=== PATIENT | female | born 1955 | race Caucasian/White ===

== ENCOUNTER 2018-06-24 06:57 | Inpatient (IN) | payer OTHER ==
[2018-06-24] MEDS ORDERED: SEVOFLURANE 15 MIN (07:00)
[2018-06-24] MEDS ORDERED: PROPOFOL 200 MG INJ (07:00)
[2018-06-24] MEDS ORDERED: CEFAZOLIN 1 GM INJ (07:00)
[2018-06-24] MEDS ORDERED: EPHEDrine SULFATE 50 MG/5 ML SYG (07:00)
[2018-06-24] MEDS ORDERED: LIDOCAINE 2% (SDV) 5 ML INJ (07:52)
[2018-06-24] MEDS ORDERED: ETOMIDATE 20 MG INJ (07:52)
[2018-06-24] MEDS ORDERED: FENTAnyl 50 MCG/ML VIAL (07:52)
[2018-06-24] MEDS ORDERED: PHENYLephrine 10 MG INJ (07:53)
[2018-06-24] MEDS ORDERED: DEXAMETHASONE 4 MG/ML 5 ML INJ (07:53)
[2018-06-24] MEDS ORDERED: ONDANSETRON 4 MG INJ (08:05)
[2018-06-24] MEDS ORDERED: FENTAnyl 50 MCG/ML VIAL IV (08:30)
[2018-06-24] MEDS ORDERED: ROPIVACAINE 0.2% 20 ML VIAL (09:13)
[2018-06-24] MEDS ORDERED: HYDROmorphONE 2 MG/ML SYG (09:15)
[2018-06-24] MEDS: BUPIVACAINE 0.5%/EPI (SDV) 30 ML INJ (09:57)
[2018-06-24] MEDS: ONDANSETRON 4 MG INJ IV ×3 (11:03→17:06)
[2018-06-24 12:11] LABS: ADD MAN DIFF? NO
[2018-06-24 12:17] LABS: WHITE BLOOD COUNT 10.8 10^3/ul (4.8-10.8)
[2018-06-24 12:17] LABS: BASOPHIL # 0.1 10^3/ul (0.0-0.1); BASOPHILS % 0.5 % (0.0-2.0); EOSINOPHILS % 0.1 % (0.0-7.0); HEMATOCRIT 37.5 % (37.0-47.0); LYMPHOCYTES # 1.7 10^3/ul (0.8-2.9); LYMPHOCYTES % 15.8 % (15.0-51.0); MEAN CORPUSCULAR HEMOGLOBIN 25.9 pg (29.0-33.0); MONOCYTE # 0.2 10^3/ul (0.3-0.9); MONOCYTES % 1.8 % (0.0-11.0); NEUTROPHIL # 8.8 10^3/ul (1.6-7.5); NEUTROPHILS % 81.3 % (39.0-77.0); PLATELET COUNT 365 10^3/UL (140-415); RED BLOOD COUNT 4.63 10^6/ul (4.20-5.40); RED CELL DISTRIBUTION WIDTH 13.4 % (11.5-14.5)
[2018-06-24 12:20] LABS: ANION GAP 12 (5-13); BLOOD UREA NITROGEN 12 mg/dl (7-20); CALCIUM 9.1 mg/dl (8.4-10.2); CARBON DIOXIDE 20 mmol/L (21-31); CHLORIDE 107 mmol/L (97-110); CREATININE 0.58 mg/dl (0.44-1.00); Estimated GFR > 60 mL/min (>60); GLUCOSE 193 mg/dl (70-220); SODIUM 139 mmol/L (135-144)
[2018-06-24 12:30] LABS: LACTIC ACID 3.7 mmol/L (0.5-2.0)
[2018-06-24 12:32] LABS: TROPONIN-I < 0.012 ng/ml (0.000-0.120)
[2018-06-24] MEDS: POTASSIUM CHLORIDE (SR) 20 MEQ TAB PO (12:48)
[2018-06-24] MEDS: SOD CHLORIDE 0.9% 1,000 ML IV ×2 (15:05→23:50)
[2018-06-24] MEDS: CEFTRIAXONE 1 GM/50 ML (PMX) 50 ML IVPB (15:06)
[2018-06-24] MEDS: HYDROCHLOROTHIAZIDE 12.5 MG CAP PO (16:15)
[2018-06-24] MEDS: ENALAPRIL 20 MG TAB PO (16:29)
[2018-06-24] MEDS ORDERED: METOCLOPRAMIDE 10 MG INJ IV (17:00)
[2018-06-24] MEDS: PANTOPRAZOLE 40 MG INJ IV (17:35)
[2018-06-24] MEDS: hydrALAzine 20 MG INJ IV (17:48)
[2018-06-24 19:54] LABS: ADD MAN DIFF? NO
[2018-06-24 19:58] LABS: WHITE BLOOD COUNT 12.8 10^3/ul (4.8-10.8)
[2018-06-24 19:58] LABS: ABNORMAL IP MESSAGE 1; BASOPHILS % 0.2 % (0.0-2.0); HEMATOCRIT 37.2 % (37.0-47.0); HEMOGLOBIN 11.8 g/dl (12.0-16.0); LYMPHOCYTES # 0.5 10^3/ul (0.8-2.9); LYMPHOCYTES % 3.8 % (15.0-51.0); MEAN CORPUSCULAR HGB CONC 31.7 g/dl (32.0-37.0); MEAN CORPUSCULAR VOLUME 81.9 fl (82.0-101.0); MEAN PLATELET VOLUME 10.2 fl (7.4-10.4); MONOCYTE # 0.1 10^3/ul (0.3-0.9); MONOCYTES % 0.9 % (0.0-11.0); NEUTROPHIL # 12.1 10^3/ul (1.6-7.5); NEUTROPHILS % 94.5 % (39.0-77.0); PLATELET COUNT 344 10^3/UL (140-415); RED BLOOD COUNT 4.54 10^6/ul (4.20-5.40); RED CELL DISTRIBUTION WIDTH 13.2 % (11.5-14.5)
[2018-06-24 20:00] LABS: POSITIVE DIFF @See below
[2018-06-24 20:16] LABS: ANION GAP 10 (5-13); BLOOD UREA NITROGEN 12 mg/dl (7-20); CALCIUM 8.6 mg/dl (8.4-10.2); CARBON DIOXIDE 21 mmol/L (21-31); CHLORIDE 105 mmol/L (97-110); CREATININE 0.51 mg/dl (0.44-1.00); Estimated GFR > 60 mL/min (>60); GLUCOSE 175 mg/dl (70-220); POTASSIUM 3.8 mmol/L (3.5-5.1); SODIUM 136 mmol/L (135-144)
[2018-06-24 20:19] LABS: LACTIC ACID 2.3 mmol/L (0.5-2.0)
[2018-06-24 20:26] LABS: TROPONIN-I < 0.012 ng/ml (0.000-0.120)
[2018-06-25 01:35] LABS: TROPONIN-I 0.176 ng/ml (0.000-0.120)
[2018-06-25] MEDS: HYDROCHLOROTHIAZIDE 12.5 MG CAP PO (06:00)
[2018-06-25 06:10] LABS: ADD MAN DIFF? NO
[2018-06-25] MEDS: PANTOPRAZOLE 40 MG INJ IV (06:12)
[2018-06-25 06:19] LABS: BASOPHILS % 0.1 % (0.0-2.0); HEMATOCRIT 33.3 % (37.0-47.0); HEMOGLOBIN 10.6 g/dl (12.0-16.0); LYMPHOCYTES # 1.6 10^3/ul (0.8-2.9); LYMPHOCYTES % 10.6 % (15.0-51.0); MEAN CORPUSCULAR HEMOGLOBIN 26.1 pg (29.0-33.0); MEAN CORPUSCULAR HGB CONC 31.8 g/dl (32.0-37.0); MEAN PLATELET VOLUME 10.2 fl (7.4-10.4); MONOCYTE # 1.2 10^3/ul (0.3-0.9); MONOCYTES % 8.2 % (0.0-11.0); NEUTROPHIL # 11.9 10^3/ul (1.6-7.5); NEUTROPHILS % 80.7 % (39.0-77.0); PLATELET COUNT 295 10^3/UL (140-415); RED BLOOD COUNT 4.06 10^6/ul (4.20-5.40); RED CELL DISTRIBUTION WIDTH 13.5 % (11.5-14.5)
[2018-06-25 06:19] LABS: WHITE BLOOD COUNT 14.7 10^3/ul (4.8-10.8)
[2018-06-25 06:58] LABS: FREE T4 (FREE THYROXINE) 1.41 ng/dl (0.78-2.44)
[2018-06-25 07:01] LABS: TROPONIN-I 0.544 ng/ml (0.000-0.120)
[2018-06-25 07:40] LABS: LACTIC ACID 1.1 mmol/L (0.5-2.0)
[2018-06-25] MEDS: ASPIRIN (EC) 325 MG TAB PO (09:03)
[2018-06-25] MEDS: ENOXAPARIN 40 MG/0.4 ML SYG SC (09:19)
[2018-06-25] MEDS: IOHEXOL 100 ML (09:20)
[2018-06-25] MEDS: SOD CHLORIDE 0.9% 100 ML (09:20)
[2018-06-25] MEDS: SOD CHLORIDE 0.9% 1,000 ML IV (09:20)
[2018-06-25 09:24] LABS: ADD UMIC NO; UR ASCORBIC ACID NEGATIVE (NEGATIVE); UR BILIRUBIN (Dip) NEGATIVE (NEGATIVE); UR BLOOD (Dip) NEGATIVE (NEGATIVE); UR CLARITY CLEAR (CLEAR); UR COLOR COLORLESS (YELLOW); UR GLUCOSE (Dip) NEGATIVE (NEGATIVE); UR KETONES (Dip) NEGATIVE (NEGATIVE); UR LEUKOCYTE ESTERASE (Dip) NEGATIVE Leu/ul (NEGATIVE); UR NITRITE (Dip) NEGATIVE (NEGATIVE); UR SPECIFIC GRAVITY (Dip) 1.003 (1.003-1.030); UR TOTAL PROTEIN (Dip) NEGATIVE (NEGATIVE); UR UROBILINOGEN (Dip) NEGATIVE (NEGATIVE)
[2018-06-25 10:00] LABS: THYROID STIMULATING HORMONE 0.278 MIU/L (0.465-4.680)
[2018-06-25 12:03] LABS: ALANINE AMINOTRANSFERASE 26 IU/L (13-69); ALBUMIN 3.6 g/dl (3.3-4.9); ALBUMIN/GLOBULIN RATIO 1.28; ALKALINE PHOSPHATASE 48 IU/L (42-121); ANION GAP 6 (5-13); ASPARTATE AMINO TRANSFERASE 33 IU/L (15-46); BLOOD UREA NITROGEN 12 mg/dl (7-20); CALCIUM 8.4 mg/dl (8.4-10.2); CARBON DIOXIDE 24 mmol/L (21-31); CHLORIDE 110 mmol/L (97-110); CREATININE 0.69 mg/dl (0.44-1.00); Estimated GFR > 60 mL/min (>60); GLUCOSE 97 mg/dl (70-220); POTASSIUM 4.5 mmol/L (3.5-5.1); SODIUM 140 mmol/L (135-144); TOTAL PROTEIN 6.4 g/dl (6.1-8.1)
[2018-06-25 12:07] LABS: TROPONIN-I 0.583 ng/ml (0.000-0.120)
[2018-06-25] MEDS: NS + KCL 20 MEQ 1,000 ML IV (12:14)
[2018-06-25] MEDS: CEFTRIAXONE 1 GM/50 ML (PMX) 50 ML IVPB (13:22)
[2018-06-25 15:50] LABS: CREATINE KINASE 202 IU/L (23-200)
[2018-06-25] MEDS: DOCUSATE SODIUM 100 MG CAP PO ×2 (15:58→22:30)
[2018-06-25 16:02] LABS: CK INDEX 1.8; CK-MB 3.71 ng/ml (0.0-2.4)
[2018-06-25 16:07] LABS: TROPONIN-I 0.559 ng/ml (0.000-0.120)
[2018-06-25 16:15] LABS: D-DIMER 414.98 ng/ml (<460)
[2018-06-25] MEDS: AL HYDROX/MG HYDROX/SIMETH 30 ML CUP PO (17:40)
[2018-06-25] MEDS: BISACODYL (EC) 5 MG TAB PO (17:41)
[2018-06-25] MEDS ORDERED: DOCUSATE SODIUM 100 MG CAP PO (21:00)
[2018-06-25] MEDS ORDERED: VANCOMYCIN IV PER PHARMACY XX (21:30)
[2018-06-25] MEDS: VANCOMYCIN 750 MG (PMX) 250 ML IVPB (22:30)
[2018-06-25 23:12] LABS: LACTIC ACID 1.2 mmol/L (0.5-2.0)
[2018-06-26] MEDS: NS + KCL 20 MEQ 1,000 ML IV ×3 (00:20→16:21)
[2018-06-26] MEDS: PANTOPRAZOLE (EC) 40 MG TAB PO (05:36)
[2018-06-26 05:49] LABS: ADD MAN DIFF? NO
[2018-06-26 05:53] LABS: WHITE BLOOD COUNT 10.2 10^3/ul (4.8-10.8)
[2018-06-26 05:53] LABS: BASOPHIL # 0.1 10^3/ul (0.0-0.1); BASOPHILS % 0.5 % (0.0-2.0); EOSINOPHILS % 0.3 % (0.0-7.0); HEMATOCRIT 35.3 % (37.0-47.0); LYMPHOCYTES # 1.7 10^3/ul (0.8-2.9); LYMPHOCYTES % 16.8 % (15.0-51.0); MEAN CORPUSCULAR HGB CONC 31.2 g/dl (32.0-37.0); MEAN CORPUSCULAR VOLUME 83.5 fl (82.0-101.0); MEAN PLATELET VOLUME 10.4 fl (7.4-10.4); MONOCYTE # 0.7 10^3/ul (0.3-0.9); NEUTROPHIL # 7.7 10^3/ul (1.6-7.5); PLATELET COUNT 316 10^3/UL (140-415); RED BLOOD COUNT 4.23 10^6/ul (4.20-5.40); RED CELL DISTRIBUTION WIDTH 14.1 % (11.5-14.5)
[2018-06-26 06:24] LABS: CHOL/HDL RATIO 2.4 RATIO; HDL CHOLESTEROL 64 mg/dl (35-98); LDL CHOLESTEROL,CALCULATED 78 mg/dl; TRIGLYCERIDES 87 mg/dl (0-149)
[2018-06-26 06:24] LABS: CHOLESTEROL 159 mg/dl (100-200)
[2018-06-26 06:31] LABS: ANION GAP 9 (5-13); BLOOD UREA NITROGEN 10 mg/dl (7-20); CALCIUM 8.5 mg/dl (8.4-10.2); CARBON DIOXIDE 27 mmol/L (21-31); CHLORIDE 107 mmol/L (97-110); CREATININE 0.62 mg/dl (0.44-1.00); Estimated GFR > 60 mL/min (>60); GLUCOSE 93 mg/dl (70-220); POTASSIUM 4.4 mmol/L (3.5-5.1); SODIUM 143 mmol/L (135-144)
[2018-06-26] MEDS: ASPIRIN (EC) 325 MG TAB PO (08:25)
[2018-06-26] MEDS: DOCUSATE SODIUM 100 MG CAP PO ×2 (08:25→21:00)
[2018-06-26 09:23] LABS: OCCULT BLOOD STOOL NEGATIVE (NEGATIVE)
[2018-06-26] MEDS: ENOXAPARIN 40 MG/0.4 ML SYG SC (11:47)
[2018-06-26] MEDS: CEFTRIAXONE 1 GM/50 ML (PMX) 50 ML IVPB (14:09)
[2018-06-26] MEDS: AL HYDROX/MG HYDROX/SIMETH 30 ML CUP PO (16:16)
[2018-06-26] MEDS: VANCOMYCIN 500 MG (PMX) 100 ML IVPB (21:15)
[2018-06-27] MEDS: PANTOPRAZOLE (EC) 40 MG TAB PO (06:13)
[2018-06-27] MEDS: ASPIRIN (EC) 325 MG TAB PO (08:32)
[2018-06-27] MEDS: DOCUSATE SODIUM 100 MG CAP PO ×2 (08:32→20:37)
[2018-06-27] MEDS: ENOXAPARIN 40 MG/0.4 ML SYG SC (08:34)
[2018-06-27] MEDS: AL HYDROX/MG HYDROX/SIMETH 30 ML CUP PO (20:38)
[2018-06-28 06:16] LABS: CREATINE KINASE 47 IU/L (23-200)
[2018-06-28 06:28] LABS: CK INDEX 0.6; CK-MB 0.29 ng/ml (0.0-2.4)
[2018-06-28 06:38] LABS: TROPONIN-I 0.161 ng/ml (0.000-0.120)
[2018-06-28] MEDS: PANTOPRAZOLE (EC) 40 MG TAB PO (06:38)
[2018-06-28] MEDS: DOCUSATE SODIUM 100 MG CAP PO ×2 (08:14→21:22)
[2018-06-28] MEDS: ASPIRIN (EC) 325 MG TAB PO (08:14)
[2018-06-28 08:18] LABS: ADD MAN DIFF? NO
[2018-06-28 08:21] LABS: BASOPHILS % 0.6 % (0.0-2.0); EOSINOPHILS # 0.1 10^3/ul (0.0-0.5); HEMATOCRIT 34.4 % (37.0-47.0); HEMOGLOBIN 10.9 g/dl (12.0-16.0); LYMPHOCYTES # 2.1 10^3/ul (0.8-2.9); LYMPHOCYTES % 30.3 % (15.0-51.0); MEAN CORPUSCULAR HEMOGLOBIN 26.3 pg (29.0-33.0); MEAN CORPUSCULAR HGB CONC 31.7 g/dl (32.0-37.0); MEAN CORPUSCULAR VOLUME 83.1 fl (82.0-101.0); MEAN PLATELET VOLUME 10.5 fl (7.4-10.4); MONOCYTE # 0.6 10^3/ul (0.3-0.9); MONOCYTES % 8.7 % (0.0-11.0); NEUTROPHILS % 58.8 % (39.0-77.0); PLATELET COUNT 318 10^3/UL (140-415); RED BLOOD COUNT 4.14 10^6/ul (4.20-5.40); RED CELL DISTRIBUTION WIDTH 13.4 % (11.5-14.5)
[2018-06-28 08:21] LABS: WHITE BLOOD COUNT 6.8 10^3/ul (4.8-10.8)
[2018-06-28] MEDS: ENOXAPARIN 40 MG/0.4 ML SYG SC (08:21)
[2018-06-28 08:55] LABS: ANION GAP 11 (5-13); BLOOD UREA NITROGEN 13 mg/dl (7-20); CALCIUM 9.1 mg/dl (8.4-10.2); CARBON DIOXIDE 29 mmol/L (21-31); CHLORIDE 101 mmol/L (97-110); CREATININE 0.69 mg/dl (0.44-1.00); Estimated GFR > 60 mL/min (>60); GLUCOSE 96 mg/dl (70-220); SODIUM 141 mmol/L (135-144)
[2018-06-28] MEDS: AL HYDROX/MG HYDROX/SIMETH 30 ML CUP PO (21:22)
[2018-06-29] MEDS: PANTOPRAZOLE (EC) 40 MG TAB PO (05:24)
[2018-06-29 05:56] LABS: ADD MAN DIFF? NO
[2018-06-29 06:09] LABS: BASOPHIL # 0.1 10^3/ul (0.0-0.1); BASOPHILS % 0.7 % (0.0-2.0); EOSINOPHILS # 0.1 10^3/ul (0.0-0.5); EOSINOPHILS % 0.9 % (0.0-7.0); HEMATOCRIT 37.3 % (37.0-47.0); LYMPHOCYTES % 27.2 % (15.0-51.0); MEAN CORPUSCULAR HEMOGLOBIN 26.5 pg (29.0-33.0); MEAN CORPUSCULAR HGB CONC 32.2 g/dl (32.0-37.0); MEAN CORPUSCULAR VOLUME 82.3 fl (82.0-101.0); MEAN PLATELET VOLUME 10.1 fl (7.4-10.4); MONOCYTE # 0.7 10^3/ul (0.3-0.9); MONOCYTES % 8.7 % (0.0-11.0); NEUTROPHIL # 4.7 10^3/ul (1.6-7.5); NEUTROPHILS % 62.1 % (39.0-77.0); PLATELET COUNT 373 10^3/UL (140-415); RED BLOOD COUNT 4.53 10^6/ul (4.20-5.40); RED CELL DISTRIBUTION WIDTH 13.3 % (11.5-14.5)
[2018-06-29 06:09] LABS: WHITE BLOOD COUNT 7.5 10^3/ul (4.8-10.8)
[2018-06-29 06:33] LABS: ANION GAP 4 (5-13); BLOOD UREA NITROGEN 18 mg/dl (7-20); CALCIUM 9.4 mg/dl (8.4-10.2); CARBON DIOXIDE 36 mmol/L (21-31); CHLORIDE 101 mmol/L (97-110); CREATININE 0.71 mg/dl (0.44-1.00); Estimated GFR > 60 mL/min (>60); GLUCOSE 105 mg/dl (70-220); POTASSIUM 4.6 mmol/L (3.5-5.1); SODIUM 141 mmol/L (135-144)
[2018-06-29 06:37] LABS: TROPONIN-I 0.069 ng/ml (0.000-0.120)
[2018-06-29] MEDS: ASPIRIN (EC) 325 MG TAB PO (09:11)
[2018-06-29] MEDS: DOCUSATE SODIUM 100 MG CAP PO ×2 (09:11→20:17)
[2018-06-29] MEDS: ENOXAPARIN 40 MG/0.4 ML SYG SC (09:15)
[2018-06-29] MEDS: AL HYDROX/MG HYDROX/SIMETH 30 ML CUP PO ×2 (13:15→20:17)
[2018-06-30] MEDS: PANTOPRAZOLE (EC) 40 MG TAB PO (05:26)
[2018-06-30 06:27] LABS: ADD MAN DIFF? NO
[2018-06-30 06:34] LABS: BASOPHIL # 0.1 10^3/ul (0.0-0.1); BASOPHILS % 0.9 % (0.0-2.0); EOSINOPHILS # 0.1 10^3/ul (0.0-0.5); EOSINOPHILS % 1.2 % (0.0-7.0); HEMATOCRIT 37.7 % (37.0-47.0); HEMOGLOBIN 11.8 g/dl (12.0-16.0); LYMPHOCYTES # 1.7 10^3/ul (0.8-2.9); LYMPHOCYTES % 25.7 % (15.0-51.0); MEAN CORPUSCULAR HGB CONC 31.3 g/dl (32.0-37.0); MEAN CORPUSCULAR VOLUME 83.2 fl (82.0-101.0); MEAN PLATELET VOLUME 10.6 fl (7.4-10.4); MONOCYTE # 0.7 10^3/ul (0.3-0.9); NEUTROPHIL # 4.2 10^3/ul (1.6-7.5); NEUTROPHILS % 61.6 % (39.0-77.0); PLATELET COUNT 366 10^3/UL (140-415); RED BLOOD COUNT 4.53 10^6/ul (4.20-5.40); RED CELL DISTRIBUTION WIDTH 13.2 % (11.5-14.5)
[2018-06-30 06:34] LABS: WHITE BLOOD COUNT 6.7 10^3/ul (4.8-10.8)
[2018-06-30 06:59] LABS: ANION GAP 5 (5-13); BLOOD UREA NITROGEN 17 mg/dl (7-20); CALCIUM 9.4 mg/dl (8.4-10.2); CARBON DIOXIDE 34 mmol/L (21-31); CHLORIDE 101 mmol/L (97-110); CREATININE 0.63 mg/dl (0.44-1.00); Estimated GFR > 60 mL/min (>60); GLUCOSE 88 mg/dl (70-220); POTASSIUM 4.9 mmol/L (3.5-5.1); SODIUM 140 mmol/L (135-144)
[2018-06-30] MEDS: DOCUSATE SODIUM 100 MG CAP PO ×2 (09:37→20:08)
[2018-06-30] MEDS: ASPIRIN (EC) 325 MG TAB PO (09:39)
[2018-06-30] MEDS: ENOXAPARIN 40 MG/0.4 ML SYG SC (09:50)
[2018-06-30] MEDS: REGADENOSON 0.4 MG/5 ML SYG (11:52)
[2018-07-01] MEDS: PANTOPRAZOLE (EC) 40 MG TAB PO (05:37)
[2018-07-01] MEDS: DOCUSATE SODIUM 100 MG CAP PO (08:43)
[2018-07-01] MEDS: ASPIRIN (EC) 325 MG TAB PO (08:43)
[2018-07-01] MEDS: ENOXAPARIN 40 MG/0.4 ML SYG SC (08:55)
== END 2018-07-01 18:50 | disposition home or self-care (01) | DRG 495 ==
LOC: SDS 06:57 → REC 13:06 → 6WM 14:45
PROC: 0QPF04Z Removal of Internal Fixation Device from Left Patella, Open Approach (ICD-10-PCS; principal; 2018-06-24 08:00)
DX: T84.023A Instability of internal left knee prosthesis, initial encounter (principal); A41.9 Sepsis, unspecified organism; I42.9 Cardiomyopathy, unspecified; T80.1XXA Vascular complications following infusion, transfusion and therapeutic injection, initial encounter; I10 Essential (primary) hypertension; R00.0 Tachycardia, unspecified; D64.9 Anemia, unspecified; I80.9 Phlebitis and thrombophlebitis of unspecified site; R79.89 Other specified abnormal findings of blood chemistry; I80.8 Phlebitis and thrombophlebitis of other sites
CPT/HCPCS: 71045; 73562; 78452; 80048; 80053; 80061; 81003; 82270; 82550; 82553; 82962; 83605; 84439; 84443; 84484; 85025; 85378; 86850; 86900; 86901; 87040; 87086; 88300; 93005; 93017; 93306; 93970; 93971; 97161